=== PATIENT | male | born 1950 | race Caucasian/White ===

== ENCOUNTER 2016-09-18 05:55 | Day surgery (SDC) | payer MEDICAID ==
[~2016-09-18] VITALS: Ht 172.7 cm; Wt 68.6 kg
[2016-09-18] MEDS ORDERED: SODIUM CHLORIDE 0.9% 1,000 ML IV ONE ×2 (06:12→06:15)
[2016-09-18] MEDS ORDERED: FOLI0.8T2 PO (06:37)
[2016-09-18] MEDS ORDERED: MONT10TA21 PO (06:37)
[2016-09-18] MEDS ORDERED: ISON300 PO (06:37)
[2016-09-18] MEDS ORDERED: LISI-662 PO (06:37)
[2016-09-18] MEDS ORDERED: VITAD1000 PO (06:37)
[2016-09-18] MEDS ORDERED: DSS100 PO (06:37)
[2016-09-18] MEDS ORDERED: CARV12 PO ×2 (06:37)
[2016-09-18] MEDS ORDERED: PYRI50TA9 PO (06:37)
[2016-09-18] MEDS ORDERED: FAMO20 PO (06:37)
[2016-09-18] MEDS ORDERED: FERR-89 PO (06:37)
[2016-09-18] MEDS ORDERED: MIDAZOLAM HCL 2 MG/2 ML VIAL ONE (07:52)
[2016-09-18] MEDS ORDERED: FentaNYL CITRATE-PF 100 MCG/2 ML VIAL ONE (07:52)
[2016-09-18] MEDS ORDERED: MethylPREDNISolone SOD SUCC 125 MG/2 ML VIAL IVP ONE (08:30)
[2016-09-18] MEDS ORDERED: MethylPREDNISolone SOD SUCC 125 MG/2 ML VIAL ONE (08:48)
[2016-09-18] MEDS ORDERED: LIDOCAINE HCL 2% 30 ML JELLY TP ONE (16:44)
[2016-09-18] MEDS ORDERED: LIDOCAINE HCL 4% 50 ML SOLUTION TP ONE (16:44)
[2016-09-18] MEDS ORDERED: BENZOCAINE 20% 50 MCG/SPRAY 57 GM TP ONE (16:44)
[2016-09-18] MEDS ORDERED: OXYGEN THERAPY IH SCH (20:00)
== END 2016-09-18 10:55 | disposition home or self-care (01) ==
LOC: SURGERY 05:55
PROVIDERS: ATTEND Internal Medicine Critical Care Medicine
DX: J38.4 Edema of larynx (principal); B37.0 Candidal stomatitis; K25.9 Gastric ulcer, unspecified as acute or chronic, without hemorrhage or perforation; E11.22 Type 2 diabetes mellitus with diabetic chronic kidney disease; N18.6 End stage renal disease; Z99.2 Dependence on renal dialysis; Z79.4 Long term (current) use of insulin; Z98.890 Other specified postprocedural states; Z98.42 Cataract extraction status, left eye; Z98.41 Cataract extraction status, right eye
CPT/HCPCS: 31623; 31624; 71010; 87015 ×2; 87070; 87101; 87147; 87205; 87220; 88108; 88312; 93005; 94640; J2250; J2930; J3010; J7030